=== PATIENT | female | born 1975 | race Two or more races ===

== ENCOUNTER 2017-05-17 14:02 | Emergency (ER) | payer SELFPAY ==
--- NOTE | 2017-05-17 15:26 | ED Physician Chart ---
ED Chief Complaint/HPI - Patient Information Date Seen:: 05/17/17 Time Seen:: 15:21 Chief Complaint:: Left forearm numbness and tingling History of Present Illness:: 42 yo right-handed female had left forearm numbness and tingling for 2 days. It ranged from elbow to fingers on the ulnar side with weakness in left hand gripping and pushing. Denied neck pain. Allergies:: Allergies Allergy/AdvReac Type Severity Reaction Status Date / Time No Known Allergies Allergy Verified 05/17/17 14:34 Vitals:: Vital Signs - 8 hr 05/17/17 14:35 Temp 98.1 F HR 65 RR 17 BP 128/75 O2 Sat % 98 ED Past Medical History - Past Medical History Past Medical History: No significant medical hx, DM (gestational diabetes 3 years ago) Social History: Smoker, Alcohol, No Drug Use Surgical History: None Family Medical History - Family Member Father History Unknown: Yes Hx Family Cancer: No Hx Family Coronary Artery Disease: No Hx Family Congestive Heart Failure: No Hx Family Hypertension: No Hx Family Stroke: No Hx Family Diabetes: No Hx Family Dementia: No Hx Family AIDS: No Hx Family HIV: No Hx Family COPD: No Hx Family Psychiatric Problems: No Mother Ethnicity: Non- Hx Family Cancer: No Hx Family Coronary Artery Disease: No Hx Family Congestive Heart Failure: No Hx Family Hypertension: No Hx Family Stroke: No Hx Family Diabetes: No Hx Family Seizures: No Hx Family Dementia: No Hx Family AIDS: No Hx Family HIV: No Hx Family COPD: No Hx Family Hepatitis: No Hx Family Psychiatric Problems: No Hx Family Tuberculosis: No ED Physical Exam - Physical Examination Other Neuro/Psych comments:: Numbness and tingling left forearm ulnar side, worst numbness in the lesser thena. Left hand weakness ED Assessment - Assessment General Assessment: Peripheral neuropathy vs radiculopathy Assessment/Comments:: Toradol Gabapentin 300mg tid x 3 weeks ED Septic Shock - <6hrs of presentation: Vital Signs: Vital Signs - 8 hr 05/17/17 14:35 Temp 98.1 F HR 65 RR 17 BP 128/75 O2 Sat % 98 ED Discharge Plan - Patient Disposition Prescriptions: Gabapentin [Neurontin*] 300 mg PO TID #60 cap
[2017-05-17 16:22] LABS: % BASOPHILS 0.3 % (0.0-2.0); % EOSINOPHILS 1.3 % (0.0-5.0); % LYMPHOCYTES 30.3 % (20.0-50.0); % NEUTROPHILS 64.1 % (40.0-80.0); EOSINOPHILE ABSOLUTE 0.1 Th/cmm (0.1-0.4); HEMATOCRIT 42.1 % (41.0-60); HEMOGLOBIN 13.7 gm/dL (12-16); LYMPHOCYTE ABSOLUTE 2.9 Th/cmm (1.5-3.0); MEAN CELL VOLUME 90.5 fl (81-100); MEAN CORPUSCULAR HEMOGLOBIN 29.4 pg (27.0-31.0); MEAN CORPUSCULAR HGB CONC 32.5 pg (28.0-36.0); MEAN PLATELET VOLUME 8.7 fl; MONOCYTE ABSOLUTE 0.4 Th/cmm (0.3-1.0); NEUTROPHILE ABSOLUTE 6.2 Th/cmm (1.8-8.0); PLATELET COUNT 329 Th/cmm (150-400); RED BLOOD COUNT 4.65 Mil/cmm (3.80-5.10); RED CELL DISTRIBUTION WIDTH 13.7 % (11.5-20.0); WHITE BLOOD COUNT 9.6 Th/cmm (4.8-10.8)
[2017-05-17 16:54] LABS: ALB/GLOB RATIO 1.3 (1.0-1.8); ALBUMIN 4.3 gm/dL (3.7-5.3); ALKALINE PHOSPHATASE 94 U/L (34-104); ANION GAP 11.8 (7.0-16.0); BILIRUBIN,TOTAL 0.5 mg/dL (0.3-1.0); BUN - UREA NITROGEN 11 mg/dL (7-25); CALCIUM SERUM 9.3 mg/dL (8.6-10.3); CARBON DIOXIDE 24.1 mEq/L (21.0-31.0); CHLORIDE 103 mEq/L (98-107); CREATININE - SERUM 0.5 mg/dL (0.6-1.2); GFR AFRICAN-AMERICAN > 60.0 ml/min (>90); GFR NON AFRICAN-AMERICAN > 60.0 ml/min; GLUCOSE 94 mg/dL (70-105); POTASSIUM SERUM 3.9 mEq/L (3.5-5.1); SGOT 19 U/L (13-39); SGPT/ALT 20 U/L (7-52); SODIUM SERUM 135 mEq/L (136-145); TOTAL PROTEIN,SERUM 7.7 gm/dL (6.0-8.3)
--- NOTE | 2017-05-18 08:55 | Diagnostic Imaging Report ---
CT scan cervical spine HISTORY: Paresthesia, pain Total DLP equals CTDI equals Axial sections were obtained through the cervical spine. Additional sagittal and coronal reformatted images are provided. There is mild reversal of cervical lordosis that may be associated with spasm or simply related to positioning. Alignment is normal. Small spur formation noted off the anterior margins of the bodies of C5 and C6. Minimal narrowing the C5-6 interspace. No significant extradural abnormalities. No acute abnormality is. No fractures. The prevertebral soft tissues appear normal. IMPRESSION: 1. Reversal of the cervical lordosis that may be associated with spasm or related to positioning 2. Degenerative changes C5-6 If needed, an MRI exam would provide additional evaluation and assessment.
== END 2017-05-17 17:06 | disposition home or self-care (01) ==
LOC: ER 14:02
DX: R20.0 Anesthesia of skin (principal); F17.200 Nicotine dependence, unspecified, uncomplicated
CPT/HCPCS: 99285; 96372; 72125; 36415; 85025; 80053; J1885

== ENCOUNTER 2017-06-21 08:28 | Emergency (ER) | payer SELFPAY ==
--- NOTE | 2017-06-21 08:45 | ED Physician Chart ---
ED Chief Complaint/HPI - Patient Information Date Seen:: 06/21/17 Time Seen:: 08:45 Chief Complaint:: Cough History of Present Illness:: 42 yo female had cough, fever, chest tightness for 2 days. Her cough was severe that caused urinary incontinence. She also had N/V, diarrhea, and body ache. She had sick contact at home and her son had similar symptoms. Allergies:: Allergies Allergy/AdvReac Type Severity Reaction Status Date / Time No Known Allergies Allergy Verified 05/17/17 14:34 Vitals:: Vital Signs - 8 hr 06/21/17 08:35 Temp 98.4 F HR 96 RR 17 BP 127/65 O2 Sat % 99 ED Review of Systems - Review of Systems General/Constitutional: Fever, Chills Skin: No skin lesions Head: Headache Eyes: No pain Neck: No neck pain Cardio Vascular: Chest pain Pulmonary: SOB GI: Nausea, Vomiting, Diarrhea Musculoskeletal: Muscle pain ED Past Medical History - Past Medical History Past Medical History: Other (gestational diabetes) Social History: Smoker, Alcohol, No Drug Use Surgical History: None Family Medical History - Family Member Father History Unknown: Yes Hx Family Cancer: No Hx Family Coronary Artery Disease: No Hx Family Congestive Heart Failure: No Hx Family Hypertension: No Hx Family Stroke: No Hx Family Diabetes: No Hx Family Seizures: No Hx Family Dementia: No Hx Family AIDS: No Hx Family HIV: No Hx Family COPD: No Hx Family Hepatitis: No Hx Family Psychiatric Problems: No Mother Ethnicity: Non- Hx Family Cancer: No Hx Family Coronary Artery Disease: No Hx Family Congestive Heart Failure: No Hx Family Hypertension: No Hx Family Stroke: No Hx Family Diabetes: No Hx Family Seizures: No Hx Family Dementia: No Hx Family AIDS: No Hx Family HIV: No Hx Family COPD: No Hx Family Hepatitis: No Hx Family Psychiatric Problems: No Hx Family Tuberculosis: No ED Physical Exam - Physical Examination General/Constitutional: Awake, Alert Head: Atraumatic Eyes: PERRL Skin: No skin lesions ENMT: Nasal exam nl Neck: No nuchal rigidity Other Respiratory comments:: Rhonchi and wheezing Cardio Vascular: RRR, No murmur, gallop, rubs, NL S1 S2 GI: No tenderness/rebounding/guarding Extremities: normal strength in all extremities Neuro/Psych: No focal deficits ED Labs/Radiology/EKG Results - Radiology Results Results: CXR: increased lung markings, no focal consolidation ED Assessment - Assessment General Assessment: Bronchitis Leukocytosis Assessment/Comments:: CBC, CMP, UA CXR Atrovent angely Robitussin w/ codeine Zithromycin D/c home Zithromycin 250mg qd Robitssin DM 10ml po q6h prn cough F/u PCP or return to ER if symptoms worsen ED Septic Shock - . Is Septic Shock (SBP<90, OR Lactate>4 mmol\L) present?: No - <6hrs of presentation: Vital Signs: Vital Signs - 8 hr 06/21/17 08:35 Temp 98.4 F HR 96 RR 17 BP 127/65 O2 Sat % 99 ED Reassessment (Disposition) - Reassessment Reassessment Condition:: Improved - Patient Disposition Discharge/Transfer:: Home ED Discharge Plan - Patient Disposition Admit/Discharge/Transfer: PT DISCHARGED HOME Condition at Disposition: Improved Prescriptions: Azithromycin [Zithromax] 250 mg PO DAILY #6 tab Guaifenesin DM [Robitussin DM] 10 ml PO Q6H PRN #120 ml PRN Reason: Cough Or Congestion Instructions: Leukocytosis, Bronchitis, [id number] Forms: Work Release Form
[2017-06-21] MEDS ORDERED: Ipratropium Neb 0.5 mg/2.5 mL UD HHN STA (08:47)
[2017-06-21] MEDS ORDERED: Ipratropium Neb 0.5 mg/2.5 mL UD HHN ONE (08:57)
[2017-06-21 09:06] LABS: URINE MICROSCOPIC INDICATED? YES; URINE SOURCE RANDOM
[2017-06-21 09:08] LABS: % EOSINOPHILS 0.2 % (0.0-5.0); % LYMPHOCYTES 15.3 % (20.0-50.0); % MONOCYTES 9.5 % (2.0-10.0); HEMOGLOBIN 13.9 gm/dL (12-16); LYMPHOCYTE ABSOLUTE 2.1 Th/cmm (1.5-3.0); MEAN CELL VOLUME 89.4 fl (81-100); MEAN CORPUSCULAR HEMOGLOBIN 29.7 pg (27.0-31.0); MEAN CORPUSCULAR HGB CONC 33.2 pg (28.0-36.0); MEAN PLATELET VOLUME 9.1 fl; MONOCYTE ABSOLUTE 1.3 Th/cmm (0.3-1.0); NEUTROPHILE ABSOLUTE 10.2 Th/cmm (1.8-8.0); RED BLOOD COUNT 4.69 Mil/cmm (3.80-5.10); RED CELL DISTRIBUTION WIDTH 14.3 % (11.5-20.0)
[2017-06-21 09:09] LABS: URINE BILIRUBIN SMALL (NEGATIVE); URINE BLOOD TRACE (NEGATIVE); URINE GLUCOSE (UA) NEGATIVE (NEGATIVE); URINE KETONE NEGATIVE (NEGATIVE); URINE LEUKOCYTE ESTERASE NEGATIVE (NEGATIVE); URINE NITRATE NEGATIVE (NEGATIVE); URINE PROTEIN 30 mg/dL (NEGATIVE); URINE UROBILINOGEN 0.2 E.U./dL (0.2 - 1.0)
[2017-06-21 09:09] LABS: PLATELET COUNT 228 Th/cmm (150-400); WHITE BLOOD COUNT 13.6 Th/cmm (4.8-10.8)
[2017-06-21 09:10] LABS: URINE CLARITY CLEAR (CLEAR); URINE COLOR YELLOW
[2017-06-21] MEDS ORDERED: Codeine /Guaifenesin 200mg-20mg/10 mL UDC PO STA (09:12)
[2017-06-21 09:13] LABS: URINE EPITHELIAL CELLS MODERATE /lpf (FEW); URINE RBC 0-2 /hpf (0-5); URINE WBC 0-2 /hpf (0-5)
[2017-06-21] MEDS ORDERED: Azithromycin 500 MG in Sodium Chloride 0.9% 250 ML IV ONE (09:13)
[2017-06-21 09:14] LABS: URINE BACTERIA 1+ /hpf (NONE SEEN)
[2017-06-21] MEDS ORDERED: Codeine /Guaifenesin 200mg-20mg/10 mL UDC ONE (09:21)
[2017-06-21 09:28] LABS: ALB/GLOB RATIO 1.1 (1.0-1.8); ALBUMIN 4.3 gm/dL (3.7-5.3); ALKALINE PHOSPHATASE 103 U/L (34-104); BILIRUBIN,TOTAL 0.7 mg/dL (0.3-1.0); BUN - UREA NITROGEN 9 mg/dL (7-25); CALCIUM SERUM 9.4 mg/dL (8.6-10.3); CARBON DIOXIDE 24.7 mEq/L (21.0-31.0); CHLORIDE 100 mEq/L (98-107); GFR AFRICAN-AMERICAN > 60.0 ml/min (>90); GFR NON AFRICAN-AMERICAN > 60.0 ml/min; GLUCOSE 113 mg/dL (70-105); POTASSIUM SERUM 3.7 mEq/L (3.5-5.1); SGOT 16 U/L (13-39); SGPT/ALT 15 U/L (7-52); SODIUM SERUM 133 mEq/L (136-145); TOTAL PROTEIN,SERUM 8.1 gm/dL (6.0-8.3)
[2017-06-21] MEDS ORDERED: Sodium Chloride 0.9% 1,000 ML IV ONE (09:32)
--- NOTE | 2017-06-21 09:49 | Diagnostic Imaging Report ---
CHEST X-RAY: AP view INDICATION: Cough COMPARISON: None FINDINGS: Mild increased interstitial lung markings are noted.. There is no focal consolidation or pleural effusions The heart is normal in size. The osseous structures demonstrate no acute abnormalities. IMPRESSION: Mild increased interstitial lung markings. No focal consolidation identified.
[2017-06-21] MEDS ORDERED: Guaifenesin DM 10 ML UDC PO PRN (11:15)
== END 2017-06-21 12:05 | disposition home or self-care (01) ==
LOC: ER 08:28
DX: J20.9 Acute bronchitis, unspecified (principal); D72.829 Elevated white blood cell count, unspecified
CPT/HCPCS: 99285; 96365; 94640; 71045; 36415; 83605; 85025; 81001; 81025; 80053; 87040; J7040; 90779; J0456; J7030

== ENCOUNTER 2017-07-20 10:30 | Emergency (ER) | payer MEDICAID ==
--- NOTE | 2017-07-20 11:24 | ED Physician Chart ---
ED Chief Complaint/HPI - Patient Information Date Seen:: 07/20/17 Time Seen:: 11:23 Chief Complaint:: COUGH X days3 History of Present Illness:: THIS 42-YEAR-OLD FEMALE PRESENTS WITH A THREE DAY HISTORY OF COUGH WHICH IS NONPRODUCTIVE. She denies any associated fever or chills or diaphoresis. She denies some offices. Past medical history of bronchitis. Allergies:: Allergies Allergy/AdvReac Type Severity Reaction Status Date / Time No Known Allergies Allergy Verified 05/17/17 14:34 Vitals:: Vital Signs - 8 hr 07/20/17 10:38 Temp 97.1 F HR 75 RR 15 BP 115/57 O2 Sat % 100 ED Review of Systems - Review of Systems General/Constitutional: Fever, No fever, No chills, No weight loss, No weakness , No diaphoresis Skin: No skin lesions, No bruising Head: No headache, No light-headedness Eyes: No loss of vision, No pain, No diplopia ENT: No earache, No nasal drainage, No sore throat, No tinnitus Neck: No neck pain, No swelling, No stiffness, No mass noted Cardio Vascular: No chest pain, No palpitations, No PND, No orthopnea, No edema Pulmonary: No SOB, Cough, No sputum, Wheezing, No wheezing, Other GI: No nausea, No vomiting, No diarrhea, No pain, No melena, No hematochezia, No constipation, No hematemesis G/U: No dysuria, No frequency, No hematuria, No nacturia 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, No abnormal vaginal bleed, No contraction Musculoskeletal: No bone or joint pain, No back pain, No muscle pain Endocrine: No polyuria, No polydipsia Psychiatric: Prior psych history, No depression, No anxiety, No suicidal ideation, No homicidal ideation, No visual hallucination Hematopoietic: No lymphadenopathy Allergic/Immuno: No urticaria, No angioedema Neurological: No syncope, No focal symptoms, No weakness, No paresthesia, No headache, No seizure, No dizziness, No confusion, No vertigo ED Past Medical History - Past Medical History Past Medical History: Other ( BRONCHITIS) Social History: Smoker, No Drug Use, 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) Psychiatricy History: None Medication: None Family Medical History - Family Member Father History Unknown: Yes Hx Family Cancer: No Hx Family Coronary Artery Disease: No Hx Family Congestive Heart Failure: No Hx Family Hypertension: No Hx Family Stroke: No Hx Family Diabetes: No Hx Family Seizures: No Hx Family Dementia: No Hx Family AIDS: No Hx Family HIV: No Hx Family COPD: No Hx Family Hepatitis: No Hx Family Psychiatric Problems: No Mother Ethnicity: Non- Hx Family Cancer: No Hx Family Coronary Artery Disease: No Hx Family Congestive Heart Failure: No Hx Family Hypertension: No Hx Family Stroke: No Hx Family Diabetes: No Hx Family Seizures: No Hx Family Dementia: No Hx Family AIDS: No Hx Family HIV: No Hx Family COPD: No Hx Family Hepatitis: No Hx Family Psychiatric Problems: No Hx Family Tuberculosis: No ED Septic Shock - . Is Septic Shock (SBP<90, OR Lactate>4 mmol\L) present?: No - <6hrs of presentation: Vital Signs: Vital Signs - 8 hr 07/20/17 10:38 Temp 97.1 F HR 75 RR 15 BP 115/57 O2 Sat % 100 EKG Interpretation: NSR, No ST elevation Skin Exam: Warm, Dry, No Pallor, No Edema, No Erythema ED Discharge Plan - Patient Disposition Admit/Discharge/Transfer: PT DISCHARGED HOME Condition at Disposition: Improved Prescriptions: Albuterol Sulfate 1 vial HHN Q4H PRN #60 vial PRN Reason: Cough Prednisone [Deltasone] 20 mg PO BID #10 tablet Instructions: Albuterol; Ipratropium respiratory inhalation spray (Combivent Respimat), Bronchitis, [id number]
[2017-07-20] MEDS ORDERED: Codeine /Guaifenesin 200mg-20mg/10 mL UDC PO PRN (11:36)
[2017-07-20] MEDS ORDERED: Albuterol/Ipratropium Neb 3 ML AERS HHN ONE ×2 (11:41→11:52)
[2017-07-20] MEDS ORDERED: Codeine /Guaifenesin 200mg-20mg/10 mL UDC ONE (12:02)
[2017-07-20] MEDS ORDERED: Albuterol Nebulizer 2.5mg/3mL HHN STA (12:43)
[2017-07-20] MEDS ORDERED: Albuterol Nebulizer 2.5mg/3mL HHN ONE (12:56)
--- NOTE | 2017-07-21 10:15 | Diagnostic Imaging Report ---
Portable chest x-ray History: Cough Allowing for portable technique the heart size is normal. No focal pulmonary parenchymal processes. No hilar or mediastinal abnormalities. Impression: No acute abnormalities.
== END 2017-07-20 13:52 | disposition home or self-care (01) ==
LOC: ER 10:30
DX: R05 Cough (principal); F17.200 Nicotine dependence, unspecified, uncomplicated
CPT/HCPCS: 36415-UA; 71045-TC; 80329-TC; 94640; J7613

== ENCOUNTER 2018-11-02 12:08 | Emergency (ER) | payer MEDICAID ==
--- NOTE | 2018-11-02 12:26 | ED Physician Chart ---
ED Chief Complaint/HPI - Patient Information Date Seen:: 11/02/18 Time Seen:: 12:23 Chief Complaint:: rt ankle pain History of Present Illness:: 43 yr old female who jumped over something to grab her son with pain rt lateral ankle and rt calf knotted up now calf better Allergies:: Allergies Allergy/AdvReac Type Severity Reaction Status Date / Time No Known Allergies Allergy Verified 05/17/17 14:34 Vitals:: Vital Signs - 8 hr 11/02/18 12:15 Temp 98.1 F HR 86 RR 17 BP 137/74 O2 Sat % 98 ED Review of Systems - Review of Systems General/Constitutional: No fever Skin: No skin lesions Head: No headache Eyes: No loss of vision Neck: No neck pain Cardio Vascular: No chest pain Pulmonary: No SOB GI: No vomiting, No diarrhea G/U: No dysuria Musculoskeletal: Bone or joint pain Endocrine: No polyuria Hematopoietic: Bruising (bruising rt lat ankle) Allergic/Immuno: No urticaria Neurological: No syncope Family Medical History - Family Member Father History Unknown: Yes Hx Family Cancer: No Hx Family Coronary Artery Disease: No Hx Family Congestive Heart Failure: No Hx Family Hypertension: No Hx Family Stroke: No Hx Family Diabetes: No Hx Family Seizures: No Hx Family Dementia: No Hx Family AIDS: No Hx Family HIV: No Hx Family COPD: No Hx Family Hepatitis: No Hx Family Psychiatric Problems: No Mother Ethnicity: Non- Hx Family Cancer: No Hx Family Coronary Artery Disease: No Hx Family Congestive Heart Failure: No Hx Family Hypertension: No Hx Family Stroke: No Hx Family Diabetes: No Hx Family Seizures: No Hx Family Dementia: No Hx Family AIDS: No Hx Family HIV: No Hx Family COPD: No Hx Family Hepatitis: No Hx Family Psychiatric Problems: No Hx Family Tuberculosis: No ED Physical Exam - Physical Examination Other Extremities comments:: rt lat ankle swelling tenderness and painful rom ED Septic Shock - . Is Septic Shock (SBP<90, OR Lactate>4 mmol\L) present?: No - <6hrs of presentation: Vital Signs: Vital Signs - 8 hr 11/02/18 12:15 Temp 98.1 F HR 86 RR 17 BP 137/74 O2 Sat % 98
--- NOTE | 2018-11-03 08:14 | Diagnostic Imaging Report ---
Exam: Right ankle joint HISTORY: Pain Findings: Multiple views of the right ankle joint demonstrate soft tissue swelling. There is no evidence of fracture dislocation subluxation. The ankle mortise is intact IMPRESSION soft tissue swelling right ankle joint.
== END 2018-11-02 14:38 | disposition home or self-care (01) ==
LOC: ER 12:08
DX: S90.01XA Contusion of right ankle, initial encounter (principal); M25.471 Effusion, right ankle; X58.XXXA Exposure to other specified factors, initial encounter; Y93.39 Activity, other involving climbing, rappelling and jumping off; Y92.89 Other specified places as the place of occurrence of the external cause; Y99.8 Other external cause status
CPT/HCPCS: 73600-TC-RT; 81025-TC